=== PATIENT | female | born 1945 | race Caucasian/White ===

== ENCOUNTER 2023-10-24 08:39 | Emergency (ER) | payer OTHER ==
[2023-10-24 09:06] LABS: Absolute Basophils 0.1 K/uL (0-0.5); Absolute Eosinophils 0.1 K/uL (0-0.5); Absolute Lymphocytes (CBC) 1.5 K/uL (0.7-4.9); Absolute Monocytes 0.6 K/uL (0.1-1.3); Absolute Neutrophil 6.8 K/uL (1.8-8.0); Basophils % 1.1 % (0-1.3); Eosinophils % 1.2 % (0-4.4); Hematocrit 29.4 % (36.0-45.0); Hemoglobin 9.6 g/dL (12.0-15.0); Lymphocytes % 16.1 % (15.3-44.8); MCH 27.6 pg (27.0-35.0); MCHC 32.5 g/dL (32.0-36.0); MPV 7.8 fL (7.6-11.3); Monocytes % 7.1 % (3.3-12.3); Neutrophils % 74.5 % (41.7-73.7); Nucleated Red Blood Cells % 0.1 % (0-0); Platelets 412 thou/uL (152-406); RBC Red Blood Cell Count 3.46 M/uL (3.86-4.86); Red Cell Distribution Width 16.7 % (12.1-15.2)
[2023-10-24 09:11] LABS: PT Prothrombin Time 11.3 SECONDS (9.5-12.5); Protime INR 1.03
--- NOTE | 2023-10-24 09:22 | RAD REPORT ---
EXAM DESCRIPTION: CT - Head Brain Wo Cont - 10/24/2023 9:13 am CLINICAL HISTORY: Syncope COMPARISON: None TECHNIQUE: Computed axial tomography of the head was obtained. IV contrast was not requested. All CT scans are performed using dose optimization technique as appropriate and may include automated exposure control or mA/KV adjustment according to patient size. FINDINGS: An intracranial bleed is not seen Prominence of ventricles likely related to cerebral atrophy No extra-axial fluid collection is noted. Mild to moderate low-density areas within periventricular, deep and subcortical white matter likely r epresent ischemic changes secondary to small vessel disease. Fluid within the sinuses/ mastoids is not seen. IMPRESSION: No acute intracranial abnormality is seen If patient's symptoms persist MRI of the brain would be recommended
[2023-10-24 09:23] LABS: AST/SGOT 12 U/L (15-37); Albumin 2.9 g/dL (3.4-5.0); Albumin/Globulin Ratio 0.6 (1.1-1.8); Alkaline Phosphatase 107 U/L (45-117); Anion Gap 6.4 mEq/L (5.0-15.0); BUN Blood Urea Nitrogen 34 mg/dL (7-18); Bicarbonate 28 mEq/L (21-32); Bilirubin Total 0.4 mg/dL (0.2-1.0); Globulin 4.5 g/dL (2.3-3.5); Glomerular Filtration Rate 51 ml/min (=/>90); Glucose Level 118 mg/dL (74-106); Magnesium 2.1 mg/dL (1.6-2.4); Potassium 4.4 mEq/L (3.5-5.1); Protein, Total 7.4 g/dL (6.4-8.2); Sodium Level 142 mEq/L (136-145); Troponin High Sensitivity 5.7 pg/mL (<58.9)
[2023-10-24 09:25] LABS: ALT/SGPT < 14 U/L (13-56); Bilirubin Direct < 0.2 mg/dL (0-0.2); Bilirubin Indirect, Calculated 0.2 mg/dL (0.2-0.8)
--- NOTE | 2023-10-24 09:40 | RAD REPORT ---
EXAM DESCRIPTION: CTHead angio10/24/2023 9:13 am CLINICAL HISTORY: Syncope COMPARISON: none TECHNIQUE: 100 cc Isovue [address] angiogram of the head was obtained. 3D MIPS reconstruction performed. All CT scans are performed using dose optimization technique as appropriate and may include automated exposure control or mA/KV adjustment according to patient size. FINDINGS: The basilar, anterior cerebral, middle cerebral and posterior cerebral arteries do not dem onstrate a significant stenosis Mild moderate calcified plaque distal internal carotid arteries An aneurysm is not seen No large vessel occlusion IMPRESSION: No significant abnormality is displayed
--- NOTE | 2023-10-24 09:40 | RAD REPORT ---
EXAM DESCRIPTION: Dalila Angio10/24/2023 9:13 am CLINICAL HISTORY: Syncope COMPARISON: None TECHNIQUE: 100 cc Isovue [address] angiogram of the neck was obtained. 3D MIPS reconstruction performed. All CT scans are performed using dose optimization technique as appropriate and may include automated exposure control or mA/KV adjustment according to patient size. FINDINGS: Visualized aortic arch and great vessels unremarkable Mild calcified plaque within the common carotid, internal carotid external carotid arteries bilateral ly Moderate calcified plaque distal left vertebral artery. Right vertebral artery unremarkable No dissection is seen. No high-grade stenosis [place] Mild stenosis 0 to 49 % Moderate stenosis 50-69% Severe stenosis 70-99% IMPRESSION: Calcified plaque distal left vertebral artery resulting in a moderate stenosis
--- NOTE | 2023-10-24 10:07 | RAD REPORT ---
EXAM DESCRIPTION: Jose Roberto Single View10/24/2023 9:51 am CLINICAL HISTORY: Confusion COMPARISON: none FINDINGS: The lungs appear clear of acute infiltrate. The heart is borderline enlarged. Pacemaker leads in place IMPRESSION: No acute abnormalities displayed
[2023-10-24] MEDS ORDERED: NA CHLORIDE 0.9% 500 ML ONE (10:10)
[2023-10-24 10:18] LABS: Specific Gravity 1.026 (1.005-1.030); Sqamous Epithelial <5 /HPF (None Seen); Urine Bacteria None Seen /HPF (<20); Urine Bilirubin NEGATIVE (Negative); Urine Blood Negative (Negative); Urine Clarity Clear (Clear); Urine Color Colorless (Yellow); Urine Culture Reflex Order NOT NEEDED; Urine Glucose NEGATIVE (Negative); Urine Ketones NEGATIVE (Negative); Urine Microscopic Reflex YN ORDER UMIC; Urine Mucus Slight /HPF (None Seen); Urine Nitrite NEGATIVE (Negative); Urine Protein NEGATIVE (Negative); Urine RBC <5 /HPF (None Seen); Urine Urobilinogen Normal (Normal); Urine WBC <5 /HPF (<5); Urine pH 7.5 (5.0-7.0)
--- NOTE | 2023-10-24 10:22 | EDPHYS ---
Physician Documentation [facility] Name: Yola Oneil Age: 77 yrs Sex: Female : 1945 Arrival Date: 10/24/2023 Time: 08:39 Bed 6 Private MD: ED Physician Akhil Ann HPI: 10/23 08:52 This 77 yrs old Female presents to ER via Unassigned with complaints of possible AMS. rn 08:52 The patient presents with decreased responsiveness. Onset: The symptoms/episode rn began/occurred at an unknown time. Possible causes: unknown. Current symptoms: In the emergency department the patient's symptoms have improved. It is unknown whether or not the patient has had similar symptoms in the past. EMS reports called to long-term after patient was found sleeping this morning, long-term staff reports usually up by then and talking. Once EMS arrived patient was awake and had no complaints. half-way states full code. No known trauma. Normal vital signs per EMS. Patient denies pain and reports feels fine. No witnessed syncope or seizure activity.. Historical: - Allergies: 08:59 No Known Allergies; ap3 - PMHx: 08:59 Alzheimer's disease; Depressive disorder; ap3 - PSHx: 08:58 Pacemaker; ld1 - Infectious Disease History:: Denies. - Family history:: not pertinent. - Social history:: Smoking status: unknown. - Hospitalizations: : No recent hospitalization is reported. ROS: 08:52 Constitutional: Negative for fever, chills, and weight loss, Neck: Negative for injury, rn pain, and swelling, Cardiovascular: Negative for chest pain, palpitations, and edema, Respiratory: Negative for shortness of breath, cough, wheezing, and pleuritic chest pain, Abdomen/GI: Negative for abdominal pain, nausea, vomiting, diarrhea, and constipation, Back: Negative for injury and pain, : Negative for injury, bleeding, discharge, and swelling, MS/Extremity: Negative for injury and deformity, Skin: Negative for injury, rash, and discoloration, Neuro: Negative for headache, weakness, numbness, tingling, and seizure, Exam: 08:52 Constitutional: This is a well developed, well nourished patient who is awake, alert, rn and in no acute distress. Head/Face: Normocephalic, atraumatic. ENT: Dry mucous membranes Cardiovascular: Regular rate and rhythm. No pulse deficits. Respiratory: No increased work of breathing, no retractions or nasal flaring. Abdomen/GI: Soft, non-tender MS/ Extremity: Pulses equal, no cyanosis. Neuro: Awake and alert, GCS 15, oriented to person, place. Cranial nerves II-XII grossly intact. Motor strength 4/5 in all extremities. Sensory grossly intact. 08:56 ECG was reviewed by the Attending Physician. rn Vital Signs: 08:56 Resp 18; Temp 97.7(A); Pain 0/10; ap3 09:21 BP 162 / 70; Pulse 69; ap3 09:43 BP 153 / 68; Pulse 67; ap3 08:56 Pain Scale: Adult ap3 MDM: 08:40 Patient medically screened. rn 10:20 Differential Diagnosis: CVA, electrolyte abnormality, intracranial bleed, UTI, volume rn depletion. Data reviewed: vital signs, nurses notes, lab test result(s), EKG, radiologic studies, CT scan, plain films, and as a result, I will discharge patient. Test considered but Not performed: MRI: Unable to perform due to pacemaker. Counseling: I had a detailed discussion with the patient and/or guardian regarding the historical points, exam findings, and any diagnostic results supporting the discharge/admit diagnosis, lab results, radiology results, the need for outpatient follow up, to return to the emergency department if symptoms worsen or persist or if there are any questions or concerns that arise at home. Response to treatment: the patient's condition has returned to base line, and as a result, I will discharge patient. Special discussion: I discussed with the patient/guardian in detail that at this point there is no indication for admission to the hospital. It is understood, however, that if the symptoms persist or worsen the patient needs to return immediately for re-evaluation. ED course: No acute findings and workup. Unable to obtain MRI due to pacemaker but CT angio is negative for large vessel occlusion or acute findings. Urine negative. Back to baseline with Alzheimer's. I have personally reviewed all of the results, including but not limited to blood tests and imaging deemed necessary to safely discharge this patient at this time. All results given to and printed out for patient. I personally went over all the results with the patient and answered all questions. Patient will follow-up with PCP and or specialist as discussed. Return precautions given and understood.. 10/23 08:41 Order name: Basic Metabolic Panel; Complete Time: 09:49 rn 10/23 08:41 Order name: CBC with Diff; Complete Time: 09:49 rn 10/23 08:41 Order name: Hepatic Function; Complete Time: 09:49 rn 10/23 08:41 Order name: Magnesium; Complete Time: 09:49 rn 10/23 08:41 Order name: Protime (+inr); Complete Time: 09:49 rn 10/23 08:41 Order name: Ptt, Activated; Complete Time: 09:49 rn 10/23 08:41 Order name: Troponin High Sensitivity; Complete Time: 09:49 rn 10/23 08:41 Order name: Urinalysis w/ reflexes; Complete Time: 10:20 rn 10/23 09:31 Order name: CREATININE WHOLE BLOOD; Complete Time: 09:49 EDMS 10/23 08:41 Order name: CT Head Brain wo Cont; Complete Time: 09:49 rn 10/23 08:41 Order name: Chest Single View XRAY; Complete Time: 10:08 rn 10/23 08:43 Order name: Head Angio CT; Complete Time: 09:49 rn 10/23 08:43 Order name: Neck Angio CT; Complete Time: 09:49 rn 10/23 08:41 Order name: EKG; Complete Time: 08:42 rn 10/23 08:41 Order name: Cardiac monitoring; Complete Time: 08:53 rn 10/23 08:41 Order name: EKG - Nurse/Tech; Complete Time: 08:53 rn 10/23 08:41 Order name: IV Saline Lock; Complete Time: 08:54 10/23 08:41 Order name: Labs collected and sent; Complete Time: 09:02 rn 10/23 08:41 Order name: O2 Per Protocol; Complete Time: 08:54 rn 10/23 08:41 Order name: O2 Sat Monitoring; Complete Time: 08:54 rn EC:56 Rate is 66 beats/min. Rhythm is regular. QRS [place] is Normal. [place] interval is normal. QRS rn interval is normal. QT interval is normal. No Q waves. T waves are Normal. No ST changes noted. Clinical impression: Normal ECG. Interpreted by me. Reviewed by me. Administered Medications: 10:14 Drug: NS 0.9% IV 500 ml IV at bolus once Route: IV; Rate: bolus; Site: right forearm; mb9 10:28 Follow up: Response: No adverse reaction; IV Status: Completed infusion mb9 Disposition Summary: 10/24/23 10:22 Discharge Ordered Notes: Location: Home rn Problem: new rn Symptoms: have improved rn Condition: Stable rn Diagnosis - Alzheimer's disease, unspecified rn - Altered mental status, unspecified rn Followup: rn - With: Private Physician - When: As needed - Reason: Recheck today's complaints, Re-evaluation by your physician Discharge Instructions: - Discharge Summary Sheet rn - Dehydration, Adult rn - Dementia rn - Alzheimer's Disease Caregiver Guide rn Forms: - Medication Reconciliation Form rn - Antibiotic graduate internship - Prescription Opioid Use rn - Patient Portal Instructions rn - Leadership Thank You Letter rn - SBAR form bc6 Signatures: Dispatcher [employer] EDAkhil Carpenter MD MD rn Prokisch, Amanda RN RN ap3 Nayeli Overton RN RN ld1 Ksenia Horne RN RN mb9 Corrections: (The following items were deleted from the chart) 08:42 08:42 BASIC METABOLIC PANEL+C.LAB.BRZ ordered. EDMS EDMS 08:42 08:42 CBC+H.LAB.BRZ ordered. EDMS EDMS 08:42 08:42 HEPATIC FUNCTION+C.LAB.BRZ ordered. EDMS EDMS 08:42 08:42 MAGNESIUM+C.LAB.BRZ ordered. EDMS EDMS 08:42 08:42 PROTIME (+INR)+COAG.LAB.BRZ ordered. EDMS EDMS 08:42 08:42 PTT, ACTIVATED+COAG.LAB.BRZ ordered. EDMS EDMS 08:42 08:42 Troponin High Sensitivity+C.LAB.BRZ ordered. EDMS EDMS 08:42 08:42 Urinalysis+U.LAB.BRZ ordered. EDMS EDMS 08:44 08:43 Brain Wo Cont+MRI.RAD.BRZ ordered. EDMS EDMS
--- NOTE | 2023-10-24 10:22 | ER ---
Nurse's Notes [facility] Name: Yola Oneil Age: 77 yrs Sex: Female : 1945 Arrival Date: 10/24/2023 Time: 08:39 Bed 6 Private MD: Diagnosis: Alzheimer's disease, unspecified;Altered mental status, unspecified Presentation: 10/23 08:56 Chief complaint: EMS states: they were called to [facility] for a possible ap3 unwitnessed syncopal episode this morning. prison reported to EMS that the patient was not awake when they entered the room, and then was more quiet than her normal upon waking. Coronavirus screen: At this time, the client does not indicate any symptoms associated with coronavirus-19. Ebola Screen: No symptoms or risks identified at this time. Risk Assessment: Do you want to hurt yourself or someone else? Patient reports no desire to harm self or others. Onset of symptoms is unknown. 08:56 Method Of Arrival: EMS: [facility] ap3 08:56 Acuity: NIGEL 3 ap3 10:07 Initial Sepsis Screen: Does the patient meet any 2 criteria? No. Patient's initial mb9 sepsis screen is negative. Does the patient have a suspected source of infection? No. Patient's initial sepsis screen is negative. Triage Assessment: 09:00 General: Appears in no apparent distress. Behavior is calm, cooperative. Pain: Denies ap3 pain. Neuro: Level of Consciousness is awake, alert, obeys commands, Oriented to person, Speech is normal. Neuro: Reports none. Cardiovascular: Patient's skin is warm and dry. Respiratory: Airway is patent Respiratory effort is even, unlabored, Respiratory pattern is regular, symmetrical. Historical: - Allergies: 08:59 No Known Allergies; ap3 - PMHx: 08:59 Alzheimer's disease; Depressive disorder; ap3 - PSHx: 08:58 Pacemaker; ld1 - Infectious Disease History:: Denies. - Family history:: not pertinent. - Social history:: Smoking status: unknown. - Hospitalizations: : No recent hospitalization is reported. Screenin:01 Abuse screen: Denies threats or abuse. Nutritional screening: No deficits noted. ap3 Tuberculosis screening: No symptoms or risk factors identified. 10:06 [facility] ED Fall Risk Assessment (Adult) History of falling in the last 3 months, mb9 including since admission Yes- single mechanical fall (1 pt) Confusion or Disorientation Yes (5 pts) Intoxicated or Sedated No (0 pts) Impaired Gait No (0 pts) Mobility Assist Device Used No (0 pt) Altered Elimination No (0 pt) Score/Fall Risk Level 3 or more points = High Risk Oriented to surroundings, Maintained a safe environment, Educated pt \T\ family on fall prevention, incl call for assistance when getting out of bed. Assessment: 08:56 Reassessment: Carlos Oneil - Son - [phone]. ld1 10:00 Reassessment: Patient appears in no apparent distress at this time. No changes from mb9 previously documented assessment. Patient and/or family updated on plan of care and expected duration. Pain level reassessed. 10:27 Reassessment: Discharge pending ride to nursing facility. mb9 11:15 Reassessment: Patient appears in no apparent distress at this time. No changes from mb9 previously documented assessment. Patient and/or family updated on plan of care and expected duration. Pain level reassessed. Vital Signs: 08:56 Resp 18; Temp 97.7(A); Pain 0/10; ap3 09:21 BP 162 / 70; Pulse 69; ap3 09:43 BP 153 / 68; Pulse 67; ap3 08:56 Pain Scale: Adult ap3 ED Course: 08:40 Patient arrived in ED. rn 08:40 Akhil Ann MD is Attending Physician. rn 08:55 Kym Mast, LEXI is Primary Nurse. ap3 08:59 Triage completed. ap3 09:00 Initial lab(s) drawn, by me, sent to lab. EKG done, by ED staff. Inserted saline lock: aw1 22 gauge in right wrist, using aseptic technique. Missed attempt(s): 22 gauge in left wrist. Bleeding controlled, band aid applied, catheter tip intact. 09:01 Arm band placed on left wrist. ap3 09:01 Patient has correct armband on for positive identification. Bed in low position. Call ap3 light in reach. Side rails up X2. Client placed on continuous cardiac and pulse oximetry monitoring. NIBP monitoring applied. site monitor on. Pulse ox on. NIBP on. 09:15 CT Head Brain wo Cont In Process Unspecified. EDMS 09:[address] In Process Unspecified. EDMS 09:[address] In Process Unspecified. EDMS 09:53 Chest Single View XRAY In Process Unspecified. EDMS 09:53 Cleaned of incontinence. [id number] 10:06 Urine collected: clean catch specimen, cloudy. mb9 10:07 No provider procedures requiring assistance completed. mb9 10:14 Urinalysis w/ reflexes Sent. mb9 10:27 IV discontinued, intact, bleeding controlled, No redness/swelling at site. Pressure mb9 dressing applied. Administered Medications: 10:14 Drug: NS 0.9% IV 500 ml IV at bolus once Route: IV; Rate: bolus; Site: right forearm; mb9 10:28 Follow up: Response: No adverse reaction; IV Status: Completed infusion mb9 Medication: 10:07 VIS not applicable for this client. mb9 Outcome: 10:22 Discharge ordered by . rn 10:27 [facility] to [facility]. Report called to Robina john 10:27 Condition: stable 10:27 Instructed on discharge instructions, follow up and referral plans. Demonstrated understanding of instructions, follow-up care, 11:41 Patient left the ED. mb9 Signatures: Dispatcher [employer] EDAkhil Carpenter MD MD rn Prokisch, Amanda RN RN ap3 Nayeli Overton RN RN sukh1 Ksenia Horne RN RN mb9 Michela Morris Jordan [email or web address]
[2023-10-24 11:46] VITALS: TEMP 97.7
[2023-10-24 12:03] VITALS: BP 153/68
--- NOTE | 2023-10-28 15:09 | EKG ---
Test Date: 2023-10-24 Test Time: 08:50:14 Test Desk Trouble Locator: Maria T MCKEON MEASUREMENT RESULTS: Intervals: Rate: 66 WI: 156 QRSD: 88 QT: 422 QTc: 442 [place]: P: 96 WI: 156 QRS: 84 T: 94 INTERPRETIVE STATEMENTS: Normal sinus rhythm Normal ECG No previous ECG available for comparison Electronically Signed On 10-28-23 14:56:29 CDT by Alan Andrade
== END 2023-10-24 11:41 | disposition home or self-care (01) ==
LOC: ER 08:39
DX: G30.9 Alzheimer's disease, unspecified (principal); F02.80 Dementia in other diseases classified elsewhere, unspecified severity, without behavioral disturbance, psychotic disturbance, mood disturbance, and anxiety
CPT/HCPCS: 93005; 85025; 81001; 80048; 36415; 83735; 85610; 82565; 80076; 85730; 84484; 70450; 70496; 70498; 71045; 99285; Q9967; J7040

== ENCOUNTER 2024-06-27 11:34 | Emergency (ER) | payer OTHER ==
--- NOTE | 2024-06-27 12:09 | RAD REPORT ---
EXAM: CT brain without contrast HISTORY: CONFUSED COMPARISON: None TECHNIQUE: Multiple contiguous axial images were obtained and a CT of the brain without contrast. Sag ittal and coronal reformats were performed. One or more of the following dose reduction techniques were used: Automated exposure control, adjust ment of the mA and/or kV according to patient size, and/or iterative reconstruction. FINDINGS: No evidence of hydrocephalus, intracranial hemorrhage, or extra-axial fluid collection. Advanced brain atrophy with advanced periventricular and deep white matter chronic microvascular isc hemic changes present. No evidence of midline shift or areas of brain edema. Vertebral atherosclerosis. The calvarium is intact. The visualized paranasal sinuses and mastoid air cells are essentially clear . IMPRESSION: No evidence of acute intracranial abnormality.
[2024-06-27 12:21] LABS: Specific Gravity 1.024 (1.005-1.030); Sqamous Epithelial <5 /HPF (None Seen); Urine Bacteria None Seen /HPF (<20); Urine Bilirubin NEGATIVE (Negative); Urine Blood Negative (Negative); Urine Clarity Extremely Turbid (Clear); Urine Color Light-Yellow (Yellow); Urine Crystals Unidentified Few /HPF (None Seen); Urine Culture Reflex Order NOT NEEDED; Urine Glucose NEGATIVE (Negative); Urine Ketones NEGATIVE (Negative); Urine Micro Reflex YN NO BILL MICROSCOPIC; Urine Mucus Slight /HPF (None Seen); Urine Nitrite NEGATIVE (Negative); Urine Protein TRACE (Negative); Urine RBC 21-50 /HPF (None Seen); Urine Urobilinogen Normal (Normal); Urine WBC <5 /HPF (<5); Urine WBC Clump Rare /HPF (None Seen); Urine Yeast (Budding) Moderate /HPF (None Seen)
--- NOTE | 2024-06-27 12:34 | ER ---
Nurse's Notes [facility] Name: Yola Oneil Age: 78 yrs Sex: Female : 1945 Arrival Date: 06/27/2024 Time: 11:34 Bed 2 Private MD: Diagnosis: Confused Presentation: 06/27 11:36 Chief complaint: EMS states: PT FOUND ASLEEP IN WHEELCHAIR BY CREEKSIDE PERSONNEL, PT bp AT BASELINE PER EMS. Coronavirus screen: At this time, the client does not indicate any symptoms associated with coronavirus-19. Ebola Screen: No symptoms or risks identified at this time. Initial Sepsis Screen: Does the patient meet any 2 criteria? No. Patient's initial sepsis screen is negative. Does the patient have a suspected source of infection? No. Patient's initial sepsis screen is negative. Risk Assessment: Do you want to hurt yourself or someone else? Patient reports no desire to harm self or others. Onset of symptoms is unknown. 11:36 Method Of Arrival: EMS: [facility] bp 11:36 Acuity: NIGEL 3 bp Historical: - PMHx: 11:37 Alzheimer's disease; depressive disorder; bp - PSHx: 11:37 pacemaker; bp - Immunization history:: Adult Immunizations up to date. - Infectious Disease History:: Denies. - Social history:: Smoking status: Patient denies any tobacco usage or history of. Screenin:56 [facility] ED Fall Risk Assessment (Adult) History of falling in the last 3 months, ko1 including since admission No falls in past 3 months (0 pts) Confusion or Disorientation Yes (5 pts) Intoxicated or Sedated No (0 pts) Impaired Gait Yes (1 pt) Mobility Assist Device Used Yes (1 pt) Altered Elimination Yes (1 pt) Score/Fall Risk Level 3 or more points = High Risk Oriented to surroundings, Maintained a safe environment, Educated pt \T\ family on fall prevention, incl call for assistance when getting out of bed, Assessed \T\ reinforced patient's understanding of fall precautions, Provided non-skid footwear, Hourly rounding (assess needs \T\ fall precautionary measures) done, Used ambulatory aids as needed (educated on \T\ assisted with), Used gait belt as appropriate Implemented a Fall Risk Plan of Care, Apply high fall risk patient identification: yellow non skid footwear/ fall signage, Activated bed/chair alarm, Remained w/in arm's length of patient and in sight while toileting, Offered frequent toileting (1:1 observation), Remained with patient while ambulating, Utilized family, sitter, or virtual actuary as indicated. Abuse screen: Denies threats or abuse. Denies injuries from another. Nutritional screening: No deficits noted. Tuberculosis screening: No symptoms or risk factors identified. Assessment: 11:56 General: Appears in no apparent distress. Behavior is calm, cooperative, appropriate ko1 for age. Pain: Denies pain. Neuro: Oriented to person, this is her baseline. Cardiovascular: No deficits noted. Respiratory: No deficits noted. GI: No deficits noted. No signs and/or symptoms were reported involving the gastrointestinal system. : No deficits noted. No signs and/or symptoms were reported regarding the genitourinary system. EENT: No deficits noted. No signs and/or symptoms were reported regarding the EENT system. Derm: No deficits noted. No signs and/or symptoms reported regarding the dermatologic system. Musculoskeletal: No deficits noted. No signs and/or symptoms reported regarding the musculoskeletal system. Vital Signs: 11:36 BP 137 / 55; Pulse 75; Resp 16; Temp 98; Pulse Ox 100% ; bp 12:13 BP 138 / 84; Pulse 78; Resp 15; Pulse Ox 99% on R/A; ko1 14:11 BP 142 / 86; Pulse 72; Resp 15; Pulse Ox 100% on R/A; ko1 ED Course: 11:35 Patient arrived in ED. bp 11:36 Jason Lazo MD is Attending Physician. ec2 11:37 Triage completed. bp 11:46 Yoli Moura, LEXI is Primary Nurse. ko1 11:56 Patient has correct armband on for positive identification. Allergy band placed. Fall ko1 risk band placed. Bed in low position. Call light in reach. Side rails up X2. Provided Education on: labs,cath. Pulse ox on. NIBP on. Door closed. Noise minimized. Lights dimmed. Warm blanket given. Pillow given. 11:56 No provider procedures requiring assistance completed. Patient did not have IV access ko1 during this emergency room visit. 12:03 CT Head Brain wo Cont In Process Unspecified. EDMS 12:09 Urine collected: straight cath specimen, clear. Straight cath inserted, using sterile bp technique, 14 Fr. Specimen obtained. 12:44 called [facility] to arrange transport back to [facility]. sp 12:46 [facility] be here at 230 pm. sp 12:49 Report given to LEXI Hassan at [place]. ko1 12:52 Awaiting transportation. ko1 12:52 Arm band placed on right wrist. Patient placed in an exam room, on a stretcher, on ko1 pulse oximetry, Patient notified of wait time. 14:11 Awaiting transportation. ko1 Administered Medications: No medications were administered Medication: 11:56 VIS not applicable for this client. ko1 Outcome: 12:33 Discharge ordered by . ec2 12:49 Condition: stable ko1 12:49 Discharge instructions given to shelter, Instructed on discharge instructions, follow up and referral plans. Demonstrated understanding of instructions, follow-up care, 15:02 Discharged to shelter. Report called to lexi hassan ko1 15:03 Patient left the ED. ko1 Signatures: Dispatcher [employer] EDMS Sowmya Mendoza Brian, RN RN Yoli Feliz RN RN ko1 Jason Lazo MD MD ec2
--- NOTE | 2024-06-27 12:34 | EDPHYS ---
Physician Documentation [facility] Name: Yola Oneil Age: 78 yrs Sex: Female : 1945 Arrival Date: 06/27/2024 Time: 11:34 Bed 2 Private MD: ED Physician Jason Lazo HPI: 06/27 11:40 This 78 yrs old Female presents to ER via EMS with complaints of Medical ec2 Clearance. 11:40 Patient arrives today for disorientation. Patient was asleep, disoriented upon ec2 awakening. Patient with history of Alzheimer's disease. Patient is reportedly back at baseline. EMS reports no additional concerns.. Historical: - PMHx: 11:37 Alzheimer's disease; depressive disorder; bp - PSHx: 11:37 pacemaker; bp - Immunization history:: Adult Immunizations up to date. - Infectious Disease History:: Denies. - Social history:: Smoking status: Patient denies any tobacco usage or history of. ROS: 11:40 Constitutional: as per hpi ec2 Exam: 11:40 Constitutional: GEN: NAD Head: atraumatic Eyes: EOMI Ears: External ears are ec2 normal. CV: regular rate LUNGS: no respiratory distress ABD: non-distended SKIN: no evidence of rashes MSK: no evidence of trauma Vital Signs: 11:36 BP 137 / 55; Pulse 75; Resp 16; Temp 98; Pulse Ox 100% ; bp 12:13 BP 138 / 84; Pulse 78; Resp 15; Pulse Ox 99% on R/A; ko1 14:11 BP 142 / 86; Pulse 72; Resp 15; Pulse Ox 100% on R/A; ko1 MDM: 11:36 Medical Screening Exam initiated ec2 11:40 Data reviewed: vital signs, nurses notes. ED course: Patient arrives today for ec2 disorientation. Examination is unrevealing. Will obtain CT scan of the head as well as urine studies. Suspect possible disorientation after sleeping, it is possible progression of dementia.. 12:33 ED course: CT imaging negative. Urine studies negative. Patient appears to be at ec2 baseline with no acute neurologic deficits, patient is well-appearing with reassuring vital signs. Will discharge home. Turn precautions given.. 06/27 11:37 Order name: KEM; Complete Time: 12:33 ec2 06/27 11:37 Order name: CT Head Brain wo Cont; Complete Time: 12:14 ec2 06/27 11:37 Order name: Cath; Complete Time: 12:09 ec2 Administered Medications: No medications were administered Disposition Summary: 06/27/24 12:33 Discharge Ordered Notes: Location: Home ec2 Condition: Stable ec2 Diagnosis - Confused ec2 Followup: ec2 - With: Private Physician - When: - Reason: Re-evaluation by your physician Discharge Instructions: - Discharge Summary Sheet ec2 - Confusion ec2 Forms: - Medication Reconciliation Form ec2 - Antibiotic Education ec2 - Prescription Opioid Use ec2 - Patient Portal Instructions ec2 - Leadership Thank You Letter ec2 Signatures: Dispatcher [employer] Demian Mauricio, LEXI RN Jason Tucker MD MD ec2
[2024-06-27 15:10] VITALS: TEMP 98
[2024-06-27 15:13] VITALS: BP 142/86; O2SAT 100
== END 2024-06-27 15:03 | disposition home or self-care (01) ==
LOC: ER 11:34
DX: R41.0 Disorientation, unspecified (principal); G30.9 Alzheimer's disease, unspecified; F02.80 Dementia in other diseases classified elsewhere, unspecified severity, without behavioral disturbance, psychotic disturbance, mood disturbance, and anxiety; Z95.0 Presence of cardiac pacemaker
CPT/HCPCS: 51702; 70450; 81001; 99284